=== PATIENT | female | born 2000 | race Two or more races ===

== ENCOUNTER → 2024-11-18 | Emergency (ER) | payer BC ==
[~2024-11-18] VITALS: Ht 177.8 cm; Wt 72.6 kg
[~2024-11-18] MED LIST: BACTRIM DS TAB1 EACH PO; levoFLOXacin IN DEXTROSE 5 % 5 MG/ML PIGGYBAG IV ONE
[2024-11-18 20:56] LABS: URINE APPEARANCE Clear; URINE BILIRRUBIN Negative (NEGATIVE); URINE BLOOD Trace; URINE COLOR Dark Yellow; URINE GLUCOSE Negative (NEGATIVE); URINE KETONE Negative (NEGATIVE); URINE LEUKOCYTE Large; URINE NITRATE Positive; URINE PROTEIN Negative (NEGATIVE); URINE UROBILINOGEN 0.2 E.U./dl
[2024-11-18 21:00] LABS: URINE EPITHELIAL CELLS 9.1 uL (0.0-38.8); URINE RBC 3.5 uL (0.0-20.8)
[2024-11-18 21:07] LABS: URINE BACTERIA > 9821.5 uL (0.0-1933); URINE CAST 0.14 uL (0.0-1.40)
== END | disposition home or self-care (01) ==
LOC: ER 17:44
PROVIDERS: Preventive Medicine Public Health & General Preventive Medicine
DX: N39.0 Urinary tract infection, site not specified (principal); Z88.0 Allergy status to penicillin

== ENCOUNTER → 2024-11-19 | Emergency (ER) | payer BC ==
[~2024-11-19] VITALS: Ht 177.8 cm; Wt 72.6 kg
[~2024-11-19] MED LIST changes: -levoFLOXacin IN DEXTROSE 5 % 5 MG/ML PIGGYBAG IV ONE
== END | disposition left against medical advice (07) ==
LOC: ER 03:03
DX: Z53.21 Procedure and treatment not carried out due to patient leaving prior to being seen by health care provider (principal)